=== PATIENT | female | born 1975 | race Caucasian/White ===

== ENCOUNTER 2018-02-26 20:25 | Emergency (ER) | payer OTHER ==
[~2018-02-26] VITALS: Ht 160 cm; Wt 63.5 kg
[~2018-02-26 20:25] MED LIST: ALPR1 PO; Ativan1 MG PO; Augmentin 875-1 EACH PO; CARV3.125 PO; CEFU500 PO; CLON.5 PO; CYCL10 PO; Coumadin5 MG PO; DULO30 PO; ESCI10; ESOM20 PO; FAMO20 PO; FLUO20 PO; FURO20 PO; GABA100; GABA300 PO; GUAI600T33 PO; HYDACE5 PO; HYDHCL25 PO; HYDR1TAB94 PO; IBUP400 PO; IBUP800 PO; Inderal 20 mg T20 MG PO; Klor-Con 1010 MEQ PO; LACT10SY PO; LEVFLO500 PO; LEVO750 PO; LISI20 PO; MAGOXI400 PO; META800 PO; METO50 PO; METOCLOPRAMIDE10 MG PO; METR500 PO; NAPR500 PO; NICO21TP TOP; Naprosyn500 MG PO; Norco 5-325 Ta1 EACH PO; Nortriptyline H25 MG PO; OMEP20ER PO; ONDA8 PO; OXYACE5T PO; PANT40 PO; PIND5; POTA20PAC PO; POTCHL20ER PO; PROC10 PO; PROM25 PO; Percocet 5-3251 EACH PO; RIFA550T2 PO; RXONDA4ODT MM; RXOXYACE PO; Rocephin 1g1 G/50 ML IV; Roxicodone15 MG PO; SERT25 PO; SILD25T PO; SOMA350 MG PO; Ultram50 MG PO; VANC125 IV; VITRON C PO; XARELTO15 MG PO; Zofran Odt4 MG PO; Zofran Odt4 MG SL; Zofran Odt8 MG SL
[2018-02-26 21:18] LABS: BASOPHILS ABSOLUTE AUTO 0.12 K/mm3 (0.00-0.23); BASOPHILS PERCENT AUTO 1 % (0-2); EOSINOPHILS ABSOLUTE AUTO 0.25 K/mm3 (0.00-0.68); EOSINOPHILS PERCENT AUTO 3 % (0-6); Hematocrit 41.7 % (33.0-51.0); Hemoglobin 13.2 g/dL (11.5-16.0); IMMATURE GRAN ABSOLUTE AUTO 0.04 K/mm3 (0.00-0.10); IMMATURE GRAN PERCENT AUTO 0 % (0-1); LYMPHOCYTES ABSOLUTE AUTO 3.07 K/mm3 (0.84-5.20); LYMPHOCYTES PERCENT AUTO 32 % (21-46); MONOCYTES ABSOLUTE AUTO 0.62 K/mm3 (0.16-1.47); MONOCYTES PERCENT AUTO 7 % (4-13); Mean Corpuscular HGB Conc 31.7 g/dL (31.5-36.5); Mean Corpuscular Volume 92 fL (80-100); Mean Platelet Volume 9.8 fL (9.1-12.4); NEUTROPHILS ABSOLUTE AUTO 5.49 K/mm3 (1.96-9.15); NEUTROPHILS PERCENT AUTO 57 % (41-73); Platelet Count 218 K/mm3 (150-400); RDW Coefficient Variation 13.1 % (11.7-14.2); RDW Standard Deviation 44.1 fL (35.1-46.3); Red Blood Cell Count 4.55 M/mm3 (3.80-5.20); White Blood Cell Count 9.59 K/mm3 (4.00-11.30)
[2018-02-26 21:33] LABS: Source, Urine Clean Catch
[2018-02-26 21:39] LABS: Bilirubin, Urine Neg (Neg); Blood, Urine Neg (Neg); Glucose Qualitative, Urine Neg (Neg); Ketones, Urine Neg (Neg); Leukocyte Esterase, Urine Neg (Neg); Nitrite, Urine Neg (Neg); Protein, Urine Neg (Neg); Specific Gravity, Urine 1.015 (1.003-1.022); Urobilinogen, Urine NORM (Normal)
[2018-02-26 21:47] LABS: Color, Urine Yellow (P-Yellow)
[2018-02-26 21:48] LABS: Appearance, Urine Hazy (Clear); Bacteria Few /hpf; Red Blood Cells, Urine Not Seen /hpf (0-2); Squamous Epithelial Cells Many /hpf (Few); White Blood Cells, Urine Rare /hpf (0-5)
[2018-02-26 21:49] LABS: Alanine Aminotransfer (ALT/SGP 17 U/L (12-78); Albumin, Blood 3.9 g/dL (3.4-5.0); Albumin/Globulin Ratio 1.1 (0.8-1.8); Alk Phos 102 U/L (50-136); Anion Gap 9 mmol/L (6-16); Aspartate Aminotrans (AST/SGOT 27 U/L (12-37); Bilirubin, Total 0.4 mg/dL (0.1-1.0); Blood Urea Nitrogen 6 mg/dL (8-24); Bun/Creatinine Ratio 8.4 (12.0-20.0); CO2, Blood 21 mmol/L (21-32); Chloride, Blood 102 mmol/L (98-108); Creatinine, Blood 0.71 mg/dL (0.40-1.00); Globulin, Blood 3.6 g/dL (2.2-4.0); Glomerular Filtration Rate >60 (60-); Glucose, Blood 107 mg/dL (70-99); Potassium, Blood 4.4 mmol/L (3.5-5.5); Sodium, Blood 132 mmol/L (136-145); Total Protein, Blood 7.5 g/dL (6.4-8.2)
[2018-02-26] MEDS ORDERED: Norco 5-325 Ta1 EACH PO (23:54)
[2018-02-26] MEDS ORDERED: Protonix40 MG PO (23:54)
== END 2018-02-27 00:14 | disposition home or self-care (01) ==
LOC: ER 20:25
PROVIDERS: Emergency Medicine
DX: K74.60 Unspecified cirrhosis of liver (principal); I11.0 Hypertensive heart disease with heart failure; I50.9 Heart failure, unspecified; F17.210 Nicotine dependence, cigarettes, uncomplicated; Z88.1 Allergy status to other antibiotic agents; Z88.8 Allergy status to other drugs, medicaments and biological substances; Z79.899 Other long term (current) drug therapy
CPT/HCPCS: 36415; 71046; 80053; 81001; 81025; 83690; 84484; 85025; 93005; 93010; 96374; 96376; 99284-25; J3010

== ENCOUNTER 2018-03-06 22:18 | Emergency (ER) | payer OTHER ==
[~2018-03-06] VITALS: Ht 160 cm; Wt 63.5 kg
[~2018-03-06 22:18] MED LIST changes: +Protonix40 MG PO
[2018-03-07] MEDS ORDERED: Norco 5-325 Ta1 EACH PO (00:09)
== END 2018-03-07 00:34 | disposition home or self-care (01) ==
LOC: ER 22:18
DX: R07.89 Other chest pain (principal); Z88.1 Allergy status to other antibiotic agents; Z88.8 Allergy status to other drugs, medicaments and biological substances; Z79.899 Other long term (current) drug therapy; I10 Essential (primary) hypertension; F17.210 Nicotine dependence, cigarettes, uncomplicated
CPT/HCPCS: 36415; 93005; 93010; 96374; 99283-25; J3010

== ENCOUNTER 2018-04-08 18:29 | Emergency (ER) | payer OTHER ==
[~2018-04-08] VITALS: Ht 160 cm; Wt 63.5 kg
[2018-04-08] MEDS ORDERED: Norco 5-325 Ta1 EACH PO (20:33)
== END 2018-04-08 20:47 | disposition home or self-care (01) ==
LOC: ER 18:29
DX: M54.5 Low back pain (principal); W01.198A Fall on same level from slipping, tripping and stumbling with subsequent striking against other object, initial encounter; Z88.1 Allergy status to other antibiotic agents; Z88.8 Allergy status to other drugs, medicaments and biological substances; Z79.899 Other long term (current) drug therapy; I11.0 Hypertensive heart disease with heart failure; I50.9 Heart failure, unspecified; F17.200 Nicotine dependence, unspecified, uncomplicated
CPT/HCPCS: 72100; 96372; 99283-25; J1885

== ENCOUNTER → 2019-02-26 | Outpatient (CLI) | payer OTHER ==
[2019-02-26 19:29] LABS: Bilirubin, Urine Neg (Neg); Blood, Urine Neg (Neg); Glucose Qualitative, Urine Neg (Neg); Ketones, Urine Neg (Neg); Leukocyte Esterase, Urine Neg (Neg); Nitrite, Urine Neg (Neg); Protein, Urine Neg (Neg); Specific Gravity, Urine 1.005 (1.003-1.022); Urobilinogen, Urine NORM (Normal)
[2019-02-26 19:34] LABS: Appearance, Urine Clear (Clear); Color, Urine Yellow (P-Yellow)
== END | disposition home or self-care (01) ==
LOC: LAB 16:19 → LAB SHORT 16:19 → LAB FUT 02-27 17:00 → EDSTATUS 02-27 17:00
DX: R10.9 Unspecified abdominal pain (principal)
CPT/HCPCS: 81003

== ENCOUNTER 2019-08-14 15:39 | Observation (INO) | payer OTHER ==
[~2019-08-14] VITALS: Ht 160 cm; Wt 77.9 kg
[~2019-08-14 15:39] MED LIST changes: -CARV3.125 PO; -PANT40 PO; -SERT25 PO
[2019-08-14 16:49] LABS: BASOPHILS ABSOLUTE AUTO 0.03 K/mm3 (0.00-0.23); BASOPHILS PERCENT AUTO 0 % (0-2); EOSINOPHILS ABSOLUTE AUTO 0.01 K/mm3 (0.00-0.68); EOSINOPHILS PERCENT AUTO 0 % (0-6); Hematocrit 46.7 % (33.0-51.0); Hemoglobin 15.8 g/dL (11.5-16.0); IMMATURE GRAN ABSOLUTE AUTO 0.04 K/mm3 (0.00-0.10); IMMATURE GRAN PERCENT AUTO 0 % (0-1); LYMPHOCYTES ABSOLUTE AUTO 2.03 K/mm3 (0.84-5.20); LYMPHOCYTES PERCENT AUTO 16 % (21-46); MONOCYTES ABSOLUTE AUTO 0.59 K/mm3 (0.16-1.47); MONOCYTES PERCENT AUTO 5 % (4-13); Mean Corpuscular HGB 30.6 pg (26.0-34.0); Mean Corpuscular HGB Conc 33.8 g/dL (31.5-36.5); Mean Corpuscular Volume 91 fL (80-100); Mean Platelet Volume 10.7 fL (9.1-12.4); NEUTROPHILS ABSOLUTE AUTO 10.13 K/mm3 (1.96-9.15); NEUTROPHILS PERCENT AUTO 79 % (41-73); Platelet Count 167 K/mm3 (150-400); RDW Coefficient Variation 12.6 % (11.7-14.2); RDW Standard Deviation 41.7 fL (35.1-46.3); Red Blood Cell Count 5.16 M/mm3 (3.80-5.20); White Blood Cell Count 12.83 K/mm3 (4.00-11.30)
[2019-08-14 17:03] LABS: Alanine Aminotransfer (ALT/SGP 23 U/L (12-78); Albumin, Blood 4.7 g/dL (3.4-5.0); Albumin/Globulin Ratio 1.1 (0.8-1.8); Alk Phos 106 U/L (50-136); Anion Gap 9 mmol/L (6-16); Aspartate Aminotrans (AST/SGOT 30 U/L (12-37); Bilirubin, Total 0.9 mg/dL (0.1-1.0); Blood Urea Nitrogen 9 mg/dL (8-24); Bun/Creatinine Ratio 12.6 (12.0-20.0); CO2, Blood 26 mmol/L (21-32); Chloride, Blood 104 mmol/L (98-108); Creatinine, Blood 0.71 mg/dL (0.40-1.00); Globulin, Blood 4.3 g/dL (2.2-4.0); Glomerular Filtration Rate >60 (60-); Glucose, Blood 122 mg/dL (70-99); Potassium, Blood 3.8 mmol/L (3.5-5.5); Sodium, Blood 139 mmol/L (136-145)
[2019-08-14 17:46] LABS: Source, Urine Clean Catch
[2019-08-14 17:59] LABS: Bilirubin, Urine Neg (Neg); Blood, Urine 1+ (Neg); Glucose Qualitative, Urine Neg (Neg); Ketones, Urine 3+ (Neg); Leukocyte Esterase, Urine Neg (Neg); Nitrite, Urine Neg (Neg); Protein, Urine 1+ (Neg); Specific Gravity, Urine 1.015 (1.003-1.022); Urobilinogen, Urine NORM (Normal)
[2019-08-14 18:06] LABS: Appearance, Urine Clear (Clear); Color, Urine Yellow (P-Yellow)
[2019-08-14 18:15] LABS: Bacteria Few /hpf; Mucus Light (0-Heavy); Red Blood Cells, Urine Not Seen /hpf (0-2); Squamous Epithelial Cells Few /hpf (Few); White Blood Cells, Urine 0-2 /hpf (0-5)
[2019-08-14] MEDS ORDERED: CARV6.25 PO (18:32)
[2019-08-14] MEDS ORDERED: PANT40 PO (18:33)
[2019-08-14] MEDS ORDERED: SERT50 PO (18:33)
[2019-08-14] MEDS ORDERED: LACT10SY PO (18:34)
[2019-08-14] MEDS ORDERED: CYCL10 PO (18:35)
[2019-08-14] MEDS ORDERED: GABAPENTIN600 MG PO (18:35)
[2019-08-14] MEDS ORDERED: CLON.5 PO (18:36)
[2019-08-14] MEDS ORDERED: OXYCODONE-ACET1 EAC3 PO (18:37)
--- NOTE | 2019-08-15 00:39 | NUR ---
44 YR OLD FEMALE ADMITTED TO FLOOR EARLIER FROM THE ED WITH DX OF INTRACTIBLE N/V. PT VOICED S/S X 1 WEEK PRIOR TO COMING INTO THE ED. ALERT AND ORIENTED X 4. HX CARDIAC ISSUES - SEE HX. NITRO PASTE ADMIN IN THE ED. 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 NOTE TROP LEVELS TRENDING SLIGHTLY UPWARD. PLACED ON MED TELE. DILAUDID IV ADMINISTERED. ORDERS FOR CLONIPIN 0.5MG PO OBTAINED FROM MD PT VOICED TAKES MED EVERY NIGHT FOR ANXIETY. ORIENTED TO CALL LIGHT. CALL LIGHT IN REACH. IVF OF LR INFUSING PER MAR. WILL MONITOR.
[2019-08-15 04:55] LABS: BASOPHILS ABSOLUTE AUTO 0.04 K/mm3 (0.00-0.23); BASOPHILS PERCENT AUTO 0 % (0-2); EOSINOPHILS PERCENT AUTO 1 % (0-6); Hematocrit 35.4 % (33.0-51.0); Hemoglobin 11.6 g/dL (11.5-16.0); IMMATURE GRAN ABSOLUTE AUTO 0.02 K/mm3 (0.00-0.10); IMMATURE GRAN PERCENT AUTO 0 % (0-1); LYMPHOCYTES ABSOLUTE AUTO 3.08 K/mm3 (0.84-5.20); LYMPHOCYTES PERCENT AUTO 31 % (21-46); MONOCYTES ABSOLUTE AUTO 0.74 K/mm3 (0.16-1.47); MONOCYTES PERCENT AUTO 8 % (4-13); Mean Corpuscular HGB 30.4 pg (26.0-34.0); Mean Corpuscular HGB Conc 32.8 g/dL (31.5-36.5); Mean Corpuscular Volume 93 fL (80-100); Mean Platelet Volume 10.9 fL (9.1-12.4); NEUTROPHILS ABSOLUTE AUTO 5.88 K/mm3 (1.96-9.15); NEUTROPHILS PERCENT AUTO 60 % (41-73); Platelet Count 123 K/mm3 (150-400); RDW Coefficient Variation 12.8 % (11.7-14.2); RDW Standard Deviation 44.1 fL (35.1-46.3); Red Blood Cell Count 3.81 M/mm3 (3.80-5.20); White Blood Cell Count 9.86 K/mm3 (4.00-11.30)
[2019-08-15 05:13] LABS: Anion Gap 5 mmol/L (6-16); Blood Urea Nitrogen 9 mg/dL (8-24); Bun/Creatinine Ratio 13.5 (12.0-20.0); CO2, Blood 28 mmol/L (21-32); Calcium, Blood 8.1 mg/dL (8.5-10.1); Chloride, Blood 106 mmol/L (98-108); Creatinine, Blood 0.67 mg/dL (0.40-1.00); Glomerular Filtration Rate >60 (60-); Glucose, Blood 89 mg/dL (70-99); Magnesium, Blood 1.6 mg/dL (1.6-2.4); Potassium, Blood 3.1 mmol/L (3.5-5.5); Sodium, Blood 139 mmol/L (136-145)
--- NOTE | 2019-08-15 18:21 | NUR ---
SHIFT SUMMARY- PT IS A/O, PLESANT AND COOPERATIVE. SHE HAS NOT HAD A BM THIS SHIFT. PROVIDED TWO FLEET ENEMA PER DRS ORDERS. PT IS REQUIRING PAIN MEDICATION FREQUENTLY. DISCUSSED WITH THE PT ABOUT THE CONSTIPATING EFFECTS OF NARCOTIC PAIN MEDICATION. DR. GALLOWAY CONSULTED AND PT WILL RECIEVE AN EGD TOMORROW AFTERNOON. SHE IS RECEIVING A CLEAR LIQUID DIET.
--- NOTE | 2019-08-15 21:56 | NUR ---
PT CONTINUES TO C/O PAIN IN ABD AND PEREZ. ANALGESICS ADMIN PER MD ORDERS - SEE MAR FOR DETAILS. DISCUSSED DILAUDID SIDE EFFECTS POSSIBLE SLOWING BOWEL FUNCTION, VOICED UNDERSTANDING. STOOL MEDS GIVEN, ORDERS NOTED FOR DIET CHANGE TO WATER AND ICE CHIPS SHE PREPARES FOR PROCEDURE SCHEDULED TOMORROW, IVF OF LR CONTINUES TO INFUSE. CALL LIGHT IN REACH.
--- NOTE | 2019-08-16 04:22 | NUR ---
shift summary AWAKE AT INTERVALS WITH REQUESTS FOR PAIN MEDS. IVF INFUSING PER MD ORDERS - SEE MAR FOR DETAILS. DIET ONLY WATER AND ICE CHIPS IN PREPARATION FOR PROCEDURE SCHEDULED LATER TODAY. VOIDING QS, BUT STILL VOICED HAVING DIFFICULTY HAVING BM, MEDS GIVEN FOR BM, SEE MAR FOR DETAILS. CALL LIGHT IN REACH.
[2019-08-16 05:39] LABS: Hemoglobin 11.2 g/dL (11.5-16.0); Mean Corpuscular HGB 29.9 pg (26.0-34.0); Mean Corpuscular Volume 93 fL (80-100); Mean Platelet Volume 10.9 fL (9.1-12.4); Platelet Count 113 K/mm3 (150-400); RDW Coefficient Variation 12.4 % (11.7-14.2); RDW Standard Deviation 42.5 fL (35.1-46.3); Red Blood Cell Count 3.75 M/mm3 (3.80-5.20); White Blood Cell Count 5.99 K/mm3 (4.00-11.30)
[2019-08-16 06:06] LABS: Anion Gap 8 mmol/L (6-16); Blood Urea Nitrogen 7 mg/dL (8-24); Bun/Creatinine Ratio 10.6 (12.0-20.0); CO2, Blood 24 mmol/L (21-32); Calcium, Blood 7.9 mg/dL (8.5-10.1); Chloride, Blood 108 mmol/L (98-108); Creatinine, Blood 0.66 mg/dL (0.40-1.00); Glomerular Filtration Rate >60 (60-); Glucose, Blood 81 mg/dL (70-99); Potassium, Blood 3.5 mmol/L (3.5-5.5); Sodium, Blood 140 mmol/L (136-145)
--- NOTE | 2019-08-16 16:29 | NUR ---
PT TRANSFERRED TO [facility] VIA BED FROM MED FLOOR. Lungs clear T/O to Auscultation. History, Chart, Medications and Allergies reviewed before start of procedure. Patient confirms NPO status and agrees with scheduled surgery. Pre-Op teaching done. Pt verbalizes understanding.
--- NOTE | 2019-08-16 16:49 | NUR ---
08/16/19 1649 CORNELIA MIRZA 3-LEAD EKG REVIEWED WITH PHYSICIAN PRIOR TO START OF PROCEDURE. History, Chart, Medications and Allergies reviewed before start of procedure. O2 VIA N/C INTACT THROUGHOUT SEDATION/PROCEDURE. MONITOR INTACT WITH CONTINUOUS PULSE OXIMETRY AND INTERMITTENT BP. PATIENT DETERMINED TO BE ASA APPROPRIATE FOR PROPOFOL SEDATION PRIOR TO START OF PROCEDURE BY DR. SORENSON
--- NOTE | 2019-08-16 18:43 | NUR ---
ALERT. ORIENTED. HAD EGD. HAD LIQUID B.M AND FEELING LITTLE BETTER IN THAT END. IV INFUSING. MEDICATED FOR PAIN ABOUT Q 2 HOURS. INDEPENDENT IN THE ROOM.REPORT TO NIGHT RN
--- NOTE | 2019-08-17 07:33 | NUR ---
SHIFT SUMMARY A/O, ABLE TO MAKE NEEDS KNOWN. COOPERATIVE WITH CARE. CALLS AND ANSWERS QUESTIONS APPROPRIATELY. C/O PAIN/DISCOMFORT TO ABDOMEN RATED 7/10; MEDICATED PER EMAR. VSS/AFEBRILE. NO C/O CP OR N/V. UP INDEPENDENTLY IN ROOM. NEW 22G IV PLACE TO LFA, INFUSING LR WITHOUT ANY COMPLICATIONS. NO ACUTE CHANGES NOTED OVERNIGHT. DID NOT APPEAR TO REST. BED REMAINS IN LOWEST POSITION. CALL LIGHT AND BELONGINGS WITHIN REACH. CONTINUED TO MONITOR OVERNIGHT. REPORT GIVEN TO ONCOMING RN.
--- NOTE | 2019-08-17 07:39 | NUR ---
TASAndersonKED TO ABOUT GETTING P.O. PAIN MEDS. Sanna'Ana SKAGGS. TRAMADOL 50-100 MG Q 6 HOURS PRN
[2019-08-17] MEDS ORDERED: MELATONIN5 M1 PO (09:19)
[2019-08-17] MEDS ORDERED: TRAM50 PO (09:20)
[2019-08-17] MEDS ORDERED: ONDA4ODT MM (09:20)
--- NOTE | 2019-08-17 10:58 | NUR ---
REVIEW D'C. AWARE TO FREIGHT CONDUCTOR 2 MEDS AT [facility]. HAS HARD COPY TRAMADOL. AWARE OF F/U APPT. AWARE DR SORENSON'S OFFICE WILL CALL HER. FEELING MUCH BETTER. ANSWER ALL QUESTIONS. AWAITING RIDE.
== END 2019-08-17 11:39 | disposition home or self-care (01) ==
LOC: ER 15:39 → MEDS 15:40 → ER 20:59 → MEDS 21:13 → ENPENDDIS 08-17 09:00 → MEDS 08-17 11:39
PROVIDERS: Internal Medicine Gastroenterology; Physician Assistant; ADMIT Internal Medicine
PROC: 0DB68ZX Excision of Stomach, Via Natural or Artificial Opening Endoscopic, Diagnostic (ICD-10-PCS; principal; 2019-08-16 16:00)
DX: K25.9 Gastric ulcer, unspecified as acute or chronic, without hemorrhage or perforation (principal); T39.315A Adverse effect of propionic acid derivatives, initial encounter; E86.0 Dehydration; D63.8 Anemia in other chronic diseases classified elsewhere; I10 Essential (primary) hypertension; Z95.810 Presence of automatic (implantable) cardiac defibrillator; Z90.710 Acquired absence of both cervix and uterus; Z86.79 Personal history of other diseases of the circulatory system; Z87.19 Personal history of other diseases of the digestive system; Z86.711 Personal history of pulmonary embolism; Z79.01 Long term (current) use of anticoagulants; E87.6 Hypokalemia; Z79.891 Long term (current) use of opiate analgesic; I27.20 Pulmonary hypertension, unspecified; K56.41 Fecal impaction; R79.89 Other specified abnormal findings of blood chemistry; F17.290 Nicotine dependence, other tobacco product, uncomplicated
CPT/HCPCS: 36415; 71046; 74177; 80048; 80053; 81001; 83690; 83735; 84484; 85025; 85027; 87086; 87147; 88305; 88342; 93005; 93010; 96361; 96374-59; 96375; 96376; 99285-25; A9270-GY; C9113; G0378; J1170; J2405; J2704; J3480; J7120; Q9967; U0002

== ENCOUNTER 2019-11-19 19:20 | Observation (INO) | payer OTHER ==
[~2019-11-19] VITALS: Ht 160 cm; Wt 75.3 kg
[~2019-11-19 19:20] MED LIST changes: +CARV6.25 PO; +GABAPENTIN600 MG PO; +MELATONIN5 M1 PO; +ONDA4ODT MM; +OXYCODONE-ACET1 EAC3 PO; +PANT40 PO; +SERT50 PO; +TRAM50 PO
[2019-11-19 20:11] LABS: BASOPHILS ABSOLUTE AUTO 0.05 K/mm3 (0.00-0.23); BASOPHILS PERCENT AUTO 0 % (0-2); EOSINOPHILS ABSOLUTE AUTO 0.02 K/mm3 (0.00-0.68); EOSINOPHILS PERCENT AUTO 0 % (0-6); Hematocrit 52.8 % (33.0-51.0); Hemoglobin 17.2 g/dL (11.5-16.0); IMMATURE GRAN ABSOLUTE AUTO 0.03 K/mm3 (0.00-0.10); IMMATURE GRAN PERCENT AUTO 0 % (0-1); LYMPHOCYTES ABSOLUTE AUTO 2.63 K/mm3 (0.84-5.20); LYMPHOCYTES PERCENT AUTO 23 % (21-46); MONOCYTES ABSOLUTE AUTO 0.65 K/mm3 (0.16-1.47); MONOCYTES PERCENT AUTO 6 % (4-13); Mean Corpuscular HGB 28.8 pg (26.0-34.0); Mean Corpuscular HGB Conc 32.6 g/dL (31.5-36.5); Mean Corpuscular Volume 88 fL (80-100); Mean Platelet Volume 10.3 fL (9.1-12.4); NEUTROPHILS ABSOLUTE AUTO 7.94 K/mm3 (1.96-9.15); NEUTROPHILS PERCENT AUTO 70 % (41-73); Platelet Count 210 K/mm3 (150-400); RDW Coefficient Variation 13.1 % (11.7-14.2); RDW Standard Deviation 42.4 fL (35.1-46.3); Red Blood Cell Count 5.98 M/mm3 (3.80-5.20); White Blood Cell Count 11.32 K/mm3 (4.00-11.30)
[2019-11-19 20:38] LABS: Alanine Aminotransfer (ALT/SGP 19 U/L (12-78); Albumin, Blood 4.9 g/dL (3.4-5.0); Albumin/Globulin Ratio 1.2 (0.8-1.8); Alk Phos 157 U/L (50-136); Anion Gap 23 mmol/L (6-16); Aspartate Aminotrans (AST/SGOT 30 U/L (12-37); Bilirubin, Total 1.5 mg/dL (0.1-1.0); Blood Urea Nitrogen 15 mg/dL (8-24); Bun/Creatinine Ratio 16.8 (12.0-20.0); CO2, Blood 14 mmol/L (21-32); Calcium, Blood 9.9 mg/dL (8.5-10.1); Chloride, Blood 96 mmol/L (98-108); Creatinine, Blood 0.89 mg/dL (0.40-1.00); Globulin, Blood 4.2 g/dL (2.2-4.0); Glomerular Filtration Rate >60 (60-); Glucose, Blood 76 mg/dL (70-99); Potassium, Blood 4.2 mmol/L (3.5-5.5); Sodium, Blood 133 mmol/L (136-145); Total Protein, Blood 9.1 g/dL (6.4-8.2); Troponin I <0.015 ng/mL (0.000-0.040)
[2019-11-19 22:36] LABS: Beta-hydroxybutyrate 67.6 mg/dL (0.2-2.8)
--- NOTE | 2019-11-20 05:44 | NUR ---
SHIFT SUMMARY PT ARRIVIED TO UNIT FROM ED VIA STRETCHER AT 0150. TRANSFERED FROM STRETCHER TO HOSPITAL BED SBA, TURN AND PIVOT. SOON PT WAS IN BED STATED "WHEN DO I GET MY MEDS". PT HAS CONSTANT COMPLAINTS OF ABD PAIN AND NAUSEA. VOMITED GREEN BILE TWICE DURING SHIFT. BLOOD PRESSURE WAS HIGH UPON ARRIVIAL AND REMAINS HIGH EVEN WITH MEDS GIVEN PER MAR. PT IS SPECIFICALLY REQUESTING DILAUDID "FOR NAUSEA" STATING "IT'S THE ONLY THING THAT HELPS." HOSPITALIST CALLED AND WAS NOT WILLING TO ORDER. STATED PT WAS NOTIFIED OF SUCH IN THE ER. PT CALLS APPROPRIATELY. NO APPARENT DISTRESS OR NEEDS AT THIS TIME. WILL CONTINUE TO MONITOR UNTIL REPORT GIVEN TO DAY RN.
[2019-11-20 05:52] LABS: Anion Gap 19 mmol/L (6-16); Blood Urea Nitrogen 14 mg/dL (8-24); Bun/Creatinine Ratio 19.1 (12.0-20.0); CO2, Blood 15 mmol/L (21-32); Calcium, Blood 10.3 mg/dL (8.5-10.1); Chloride, Blood 99 mmol/L (98-108); Creatinine, Blood 0.73 mg/dL (0.40-1.00); Glomerular Filtration Rate >60 (60-); Glucose, Blood 81 mg/dL (70-99); Potassium, Blood 3.9 mmol/L (3.5-5.5); Sodium, Blood 133 mmol/L (136-145)
[2019-11-20 12:50] LABS: Anion Gap 14 mmol/L (6-16); Blood Urea Nitrogen 12 mg/dL (8-24); Bun/Creatinine Ratio 15.6 (12.0-20.0); CO2, Blood 18 mmol/L (21-32); Chloride, Blood 106 mmol/L (98-108); Creatinine, Blood 0.77 mg/dL (0.40-1.00); Glomerular Filtration Rate >60 (60-); Glucose, Blood 97 mg/dL (70-99); Potassium, Blood 3.9 mmol/L (3.5-5.5); Sodium, Blood 138 mmol/L (136-145)
[2019-11-20] MEDS ORDERED: PROM25 PO (14:12)
--- NOTE | 2019-11-20 17:35 | NUR ---
DISCHARGE NOTE PT DISCHARGE INSTRUCTIONS AND MEDICATIONS REVIEWED WITH PT. PT VERBALIZES AN UNDERSTANDING OF INSTRUCTIONS AND MEDICATIONS. IV ACCESS REMOVED PRIOR TO DISCHARGE. PT WHEELED DOWN TO ER ENTRANCE FOR TRANSPORT HOME WITH HER MOTHER.
== END 2019-11-20 16:58 | disposition home or self-care (01) ==
LOC: ER 19:20 → MEDS 19:21
PROVIDERS: Emergency Medicine; Family Medicine; ADMIT Internal Medicine
DX: R11.2 Nausea with vomiting, unspecified (principal); G89.29 Other chronic pain; K74.60 Unspecified cirrhosis of liver; E87.1 Hypo-osmolality and hyponatremia; E86.0 Dehydration; I27.20 Pulmonary hypertension, unspecified; K29.70 Gastritis, unspecified, without bleeding; E87.8 Other disorders of electrolyte and fluid balance, not elsewhere classified; I11.9 Hypertensive heart disease without heart failure; F17.210 Nicotine dependence, cigarettes, uncomplicated; Z88.1 Allergy status to other antibiotic agents; Z79.899 Other long term (current) drug therapy
CPT/HCPCS: 36415; 71046; 80048; 80053; 82010; 83605; 83880; 84484; 85025; 93005; 93010; 96361; 96374; 96375; 96376; 99285-25; J0360; J1170; J1200; J1650; J2060; J2405; J2550; J2765; J7030; J7040; J7120

== ENCOUNTER 2019-11-21 08:18 | Inpatient (IN) | payer OTHER ==
[~2019-11-21] VITALS: Ht 160 cm; Wt 72.6 kg
[2019-11-21 10:14] LABS: BASOPHILS ABSOLUTE AUTO 0.03 K/mm3 (0.00-0.23); BASOPHILS PERCENT AUTO 0 % (0-2); EOSINOPHILS PERCENT AUTO 0 % (0-6); Hematocrit 42.1 % (33.0-51.0); Hemoglobin 14.5 g/dL (11.5-16.0); IMMATURE GRAN ABSOLUTE AUTO 0.03 K/mm3 (0.00-0.10); IMMATURE GRAN PERCENT AUTO 0 % (0-1); LYMPHOCYTES ABSOLUTE AUTO 1.34 K/mm3 (0.84-5.20); LYMPHOCYTES PERCENT AUTO 11 % (21-46); MONOCYTES ABSOLUTE AUTO 0.34 K/mm3 (0.16-1.47); MONOCYTES PERCENT AUTO 3 % (4-13); Mean Corpuscular HGB 29.2 pg (26.0-34.0); Mean Corpuscular HGB Conc 34.4 g/dL (31.5-36.5); Mean Corpuscular Volume 85 fL (80-100); Mean Platelet Volume 10.1 fL (9.1-12.4); NEUTROPHILS PERCENT AUTO 85 % (41-73); Platelet Count 164 K/mm3 (150-400); RDW Coefficient Variation 13.6 % (11.7-14.2); RDW Standard Deviation 41.5 fL (35.1-46.3); Red Blood Cell Count 4.97 M/mm3 (3.80-5.20); White Blood Cell Count 11.84 K/mm3 (4.00-11.30)
[2019-11-21 10:30] LABS: Alanine Aminotransfer (ALT/SGP 20 U/L (12-78); Albumin/Globulin Ratio 1.3 (0.8-1.8); Alk Phos 115 U/L (50-136); Anion Gap 14 mmol/L (6-16); Aspartate Aminotrans (AST/SGOT 33 U/L (12-37); Bilirubin, Total 0.9 mg/dL (0.1-1.0); Blood Urea Nitrogen 7 mg/dL (8-24); Bun/Creatinine Ratio 11.6 (12.0-20.0); CO2, Blood 21 mmol/L (21-32); Calcium, Blood 10.4 mg/dL (8.5-10.1); Chloride, Blood 100 mmol/L (98-108); Globulin, Blood 3.8 g/dL (2.2-4.0); Glomerular Filtration Rate >60 (60-); Glucose, Blood 112 mg/dL (70-99); Potassium, Blood 3.6 mmol/L (3.5-5.5); Sodium, Blood 135 mmol/L (136-145); Total Protein, Blood 8.8 g/dL (6.4-8.2)
[2019-11-21 15:45] LABS: U Amphetamine Screen Not Detected; U Barbituate Screen Not Detected; U Benzodiazapine Screen DETECTED; U Buprenorphine Screen Not Detected; U Cannabinoids Screen Not Detected; U Cocaine Screen Not Detected; U Methadone Screen Not Detected; U Methamphetamine Screen Not Detected; U Opiates Screen DETECTED; U Oxycodone Screen DETECTED; U Phencyclidine Screen Not Detected; U Propoxyphene Screen Not Detected
--- NOTE | 2019-11-21 18:04 | NUR ---
SHIFT SUMMARY ED ADMIT AFTER LUNCH. PATIENT MEDICATED X2 FOR PAIN AND X2 FOR NAUSEA THIS SHIFT. PATIENT UP SBA FOR LINE MANAGEMENT. PATIENT HAD CT OF ABDOMEN TODAY. PATIENT HYPERTENSIVE TODAY, NEW ORDERS FOR IV HYDRALAZINE GIVEN. CLEAR LIQUID DIET. POWERGLIDE PLACED TODAY.
[2019-11-22 04:54] LABS: BASOPHILS ABSOLUTE AUTO 0.04 K/mm3 (0.00-0.23); BASOPHILS PERCENT AUTO 0 % (0-2); EOSINOPHILS PERCENT AUTO 0 % (0-6); Hematocrit 39.6 % (33.0-51.0); Hemoglobin 13.4 g/dL (11.5-16.0); IMMATURE GRAN ABSOLUTE AUTO 0.02 K/mm3 (0.00-0.10); IMMATURE GRAN PERCENT AUTO 0 % (0-1); LYMPHOCYTES ABSOLUTE AUTO 2.29 K/mm3 (0.84-5.20); LYMPHOCYTES PERCENT AUTO 25 % (21-46); MONOCYTES ABSOLUTE AUTO 0.63 K/mm3 (0.16-1.47); MONOCYTES PERCENT AUTO 7 % (4-13); Mean Corpuscular HGB 28.7 pg (26.0-34.0); Mean Corpuscular HGB Conc 33.8 g/dL (31.5-36.5); Mean Corpuscular Volume 85 fL (80-100); Mean Platelet Volume 10.8 fL (9.1-12.4); NEUTROPHILS ABSOLUTE AUTO 6.07 K/mm3 (1.96-9.15); NEUTROPHILS PERCENT AUTO 67 % (41-73); Platelet Count 147 K/mm3 (150-400); RDW Coefficient Variation 13.5 % (11.7-14.2); RDW Standard Deviation 41.7 fL (35.1-46.3); Red Blood Cell Count 4.67 M/mm3 (3.80-5.20); White Blood Cell Count 9.05 K/mm3 (4.00-11.30)
--- NOTE | 2019-11-22 05:13 | NUR ---
SHIFT SUMMARY- PT. PAINFUL AND NAUSEOUS T/O THE NIGHT. MEDICATED PER EMAR WITH MINIMAL EFFECT. RESTED QUIETLY IN BED MOST OF THE NIGHT. NO APPARENT DISTRESS NOTED. AMBULATES TO BATHROOM W/O DIFFICULTY. POWERGLIDE PATENT, IV FLUIDS INFUSING. CALL LIGHT WITHIN REACH AND SIDE RAILS UPX2. WILL CONT TO MONITOR.
[2019-11-22 05:21] LABS: Alanine Aminotransfer (ALT/SGP 15 U/L (12-78); Albumin/Globulin Ratio 1.1 (0.8-1.8); Alk Phos 92 U/L (50-136); Anion Gap 12 mmol/L (6-16); Aspartate Aminotrans (AST/SGOT 44 U/L (12-37); Bilirubin, Total 0.8 mg/dL (0.1-1.0); Blood Urea Nitrogen 5 mg/dL (8-24); Bun/Creatinine Ratio 7.7 (12.0-20.0); CO2, Blood 26 mmol/L (21-32); Calcium, Blood 8.6 mg/dL (8.5-10.1); Chloride, Blood 99 mmol/L (98-108); Creatinine, Blood 0.65 mg/dL (0.40-1.00); Globulin, Blood 3.5 g/dL (2.2-4.0); Glomerular Filtration Rate >60 (60-); Glucose, Blood 89 mg/dL (70-99); Magnesium, Blood 1.5 mg/dL (1.6-2.4); Sodium, Blood 137 mmol/L (136-145); Thyroid Stimulating Hormone 0.749 uIU/mL (0.360-4.800); Total Protein, Blood 7.5 g/dL (6.4-8.2)
--- NOTE | 2019-11-22 17:47 | NUR ---
SUMMARY: NO ACUTE CHANGE TODAY. PT CONTINUES TO HAVE INTERMITTANT NAUSEA, NO EMESIS, ALSO INTERMITTANT ABD PAIN. MEDICATED, SEE EMAR. IS INDEP IN ROOM. A/O. GIVEN COREG FOR HTN. NO ACUTE SAFETY CONCERNS AT THIS TIME. WILL CTM AND REPORT TO NOC RN.
--- NOTE | 2019-11-22 23:01 | NUR ---
PHYSICIAN COMMUNICATION CONTACTED THE CORE MOUNTER PHYSICIAN, DR QUINTERO, TO NOTIFY HIM THAT THE PATIENT WAS ASKING FOR SOMETHING TO HELP WITH BREAKTHROUGH PAIN. THIS RN INFORMED THE PHYSICIAN THAT THE PATIENT WAS CURRENTLY ON 2.5 MG OF MORPHINE Q4 PRN FOR PAIN AND HAS PROLONGED QT SYNDROME. DR QUINTERO ORDERED FENTANYL 25-50 MCG IV Q6 HOURS PRN.
[2019-11-23 04:54] LABS: BASOPHILS ABSOLUTE AUTO 0.03 K/mm3 (0.00-0.23); BASOPHILS PERCENT AUTO 0 % (0-2); EOSINOPHILS ABSOLUTE AUTO 0.01 K/mm3 (0.00-0.68); EOSINOPHILS PERCENT AUTO 0 % (0-6); Hematocrit 41.7 % (33.0-51.0); Hemoglobin 14.3 g/dL (11.5-16.0); IMMATURE GRAN ABSOLUTE AUTO 0.03 K/mm3 (0.00-0.10); IMMATURE GRAN PERCENT AUTO 0 % (0-1); LYMPHOCYTES ABSOLUTE AUTO 2.23 K/mm3 (0.84-5.20); LYMPHOCYTES PERCENT AUTO 28 % (21-46); MONOCYTES ABSOLUTE AUTO 0.66 K/mm3 (0.16-1.47); MONOCYTES PERCENT AUTO 8 % (4-13); Mean Corpuscular HGB 28.6 pg (26.0-34.0); Mean Corpuscular HGB Conc 34.3 g/dL (31.5-36.5); Mean Corpuscular Volume 83 fL (80-100); Mean Platelet Volume 10.3 fL (9.1-12.4); NEUTROPHILS ABSOLUTE AUTO 4.93 K/mm3 (1.96-9.15); NEUTROPHILS PERCENT AUTO 62 % (41-73); Platelet Count 162 K/mm3 (150-400); RDW Coefficient Variation 13.3 % (11.7-14.2); RDW Standard Deviation 40.8 fL (35.1-46.3); White Blood Cell Count 7.89 K/mm3 (4.00-11.30)
[2019-11-23 05:18] LABS: Magnesium, Blood 1.4 mg/dL (1.6-2.4)
[2019-11-23 05:37] LABS: Alanine Aminotransfer (ALT/SGP 12 U/L (12-78); Albumin/Globulin Ratio 1.3 (0.8-1.8); Alk Phos 91 U/L (50-136); Anion Gap 10 mmol/L (6-16); Aspartate Aminotrans (AST/SGOT 22 U/L (12-37); Bilirubin, Total 0.7 mg/dL (0.1-1.0); Blood Urea Nitrogen 8 mg/dL (8-24); Bun/Creatinine Ratio 11.9 (12.0-20.0); CO2, Blood 27 mmol/L (21-32); Calcium, Blood 8.6 mg/dL (8.5-10.1); Chloride, Blood 100 mmol/L (98-108); Creatinine, Blood 0.67 mg/dL (0.40-1.00); Globulin, Blood 3.1 g/dL (2.2-4.0); Glomerular Filtration Rate >60 (60-); Glucose, Blood 88 mg/dL (70-99); Potassium, Blood 2.3 mmol/L (3.5-5.5); Sodium, Blood 137 mmol/L (136-145); Total Protein, Blood 7.1 g/dL (6.4-8.2)
--- NOTE | 2019-11-23 07:50 | NUR ---
SHIFT SUMMARY PATIENT ALERT AND ORIENTED. PATIENT REMAINS VERY PAINFUL AND NAUSEATED, MEDICATED PER EMAR. IV PATENT AND FLUSHED. POWERGLIDE PATENT AND INFUSING. BED IN LOWEST POSITION WITH WHEELS LOCKED AND ALARM ON. CALL LIGHT WITHIN REACH. REPORT GIVEN TO ONCOMING RN.
--- NOTE | 2019-11-23 17:36 | NUR ---
PT AOX4 AND COOPERATIVE OF CARE. PT HAS HAD CONTINUED ABDOMINAL PAIN AND NAUSEA AND HAS BEEN TREATED PER EMAR. PT STATED SHE THOUGHT HER NAUSEA HAD IMPROVED A BIT THROUGH THE DAY. PT CALLS APPROPRIATELY AND ASKS FOR HELP WHEN SHE NEEDS TO WALK IN AND USE RESTROOM DUE TO THE IV POLE NEEDING MOVED. CALL LIGHT IS WITHIN REACH WILL CONTINUE TO MONITOR.
--- NOTE | 2019-11-24 04:13 | NUR ---
SUMMARY PT HAS BEEN TX FOR PAIN AND NAUSEA T/O SHIFT. PT HAS BEEN ABLE TO SLEEP DURING SHIFT. PT HAD NO OTHER ISSUES NOTED. PT CURRENTLY SLEEPING IN NO DISTRESS. CALL LIGHT IN REACH.
[2019-11-24 06:38] LABS: BASOPHILS ABSOLUTE AUTO 0.04 K/mm3 (0.00-0.23); BASOPHILS PERCENT AUTO 1 % (0-2); EOSINOPHILS ABSOLUTE AUTO 0.08 K/mm3 (0.00-0.68); EOSINOPHILS PERCENT AUTO 1 % (0-6); Hematocrit 37.2 % (33.0-51.0); Hemoglobin 12.9 g/dL (11.5-16.0); IMMATURE GRAN ABSOLUTE AUTO 0.02 K/mm3 (0.00-0.10); IMMATURE GRAN PERCENT AUTO 0 % (0-1); LYMPHOCYTES ABSOLUTE AUTO 2.32 K/mm3 (0.84-5.20); LYMPHOCYTES PERCENT AUTO 39 % (21-46); MONOCYTES ABSOLUTE AUTO 0.46 K/mm3 (0.16-1.47); MONOCYTES PERCENT AUTO 8 % (4-13); Mean Corpuscular HGB 29.3 pg (26.0-34.0); Mean Corpuscular HGB Conc 34.7 g/dL (31.5-36.5); Mean Corpuscular Volume 85 fL (80-100); Mean Platelet Volume 10.5 fL (9.1-12.4); NEUTROPHILS ABSOLUTE AUTO 3.08 K/mm3 (1.96-9.15); NEUTROPHILS PERCENT AUTO 51 % (41-73); Platelet Count 129 K/mm3 (150-400); RDW Coefficient Variation 13.9 % (11.7-14.2)
[2019-11-24 06:56] LABS: Alanine Aminotransfer (ALT/SGP 17 U/L (12-78); Albumin, Blood 3.3 g/dL (3.4-5.0); Albumin/Globulin Ratio 1.1 (0.8-1.8); Alk Phos 80 U/L (50-136); Anion Gap 4 mmol/L (6-16); Aspartate Aminotrans (AST/SGOT 21 U/L (12-37); Bilirubin, Total 0.6 mg/dL (0.1-1.0); Blood Urea Nitrogen 5 mg/dL (8-24); Bun/Creatinine Ratio 8.1 (12.0-20.0); CO2, Blood 27 mmol/L (21-32); Calcium, Blood 8.4 mg/dL (8.5-10.1); Chloride, Blood 109 mmol/L (98-108); Creatinine, Blood 0.62 mg/dL (0.40-1.00); Glomerular Filtration Rate >60 (60-); Glucose, Blood 104 mg/dL (70-99); Potassium, Blood 3.7 mmol/L (3.5-5.5); Sodium, Blood 140 mmol/L (136-145); Total Protein, Blood 6.3 g/dL (6.4-8.2)
--- NOTE | 2019-11-24 17:52 | NUR ---
PT AOX4 AND COOPERATIVE OF CARE. PT CONTINUE TO BE TREATED FOR PAIN PER EMAR. PT HAS REQUESTED SOLID FOOD DIET AND DR KILGORE APPROVED THIS. PT STANDBY ASSIST TO RESTROOM AND CALLS APPROPRIATELY. RESTING IN BED ALL DAY. NO DISTRESS NOTED.WILL CONTINUE TO MONITOR.
--- NOTE | 2019-11-24 20:03 | NUR ---
ASSUMED CARE. AOX3, INDEPENDENT IN THE ROOM. STARTED VOMITING UP DINNER. THIS WAS THE FIRST REGULAR MEAL SHE HAD. EMESIS WAS AROUND 200CC. STATES SHE DOES NOT KNOW WHY SHE STARTED WHEN SHE WAS DOING SO WELL. ADMINISTERED ATIVAN, PHENERGAN, AND FENTANYL. PAIN IN ABDOMIN 7-8. NO DIRRHEA. 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 ENCOURAGED TO SIP WATER, AND CALL IF HAPPENS AGAIN. CALL LIGHT IN REACH.
--- NOTE | 2019-11-24 23:09 | NUR ---
PT HAS HAD SEVERAL EPISODES OF VOMITING 100CC AT A TIME. THIS IS SINCE HER DINNER WHICH WAS REGULAR. CALLED LEVON CUELLO WHO ORDERED SOME ATIVAN AND NPO STATUS.
--- NOTE | 2019-11-24 23:30 | NUR ---
ADMINISTERED ATIVAN FOR NAUSEA. WILL RECHECK IN AN HOUR.
[2019-11-25 05:04] LABS: BASOPHILS ABSOLUTE AUTO 0.05 K/mm3 (0.00-0.23); BASOPHILS PERCENT AUTO 1 % (0-2); EOSINOPHILS ABSOLUTE AUTO 0.04 K/mm3 (0.00-0.68); EOSINOPHILS PERCENT AUTO 0 % (0-6); Hematocrit 43.1 % (33.0-51.0); Hemoglobin 14.7 g/dL (11.5-16.0); IMMATURE GRAN ABSOLUTE AUTO 0.04 K/mm3 (0.00-0.10); IMMATURE GRAN PERCENT AUTO 0 % (0-1); LYMPHOCYTES ABSOLUTE AUTO 2.06 K/mm3 (0.84-5.20); LYMPHOCYTES PERCENT AUTO 20 % (21-46); MONOCYTES ABSOLUTE AUTO 0.64 K/mm3 (0.16-1.47); MONOCYTES PERCENT AUTO 6 % (4-13); Mean Corpuscular HGB 28.9 pg (26.0-34.0); Mean Corpuscular HGB Conc 34.1 g/dL (31.5-36.5); Mean Corpuscular Volume 85 fL (80-100); NEUTROPHILS ABSOLUTE AUTO 7.31 K/mm3 (1.96-9.15); NEUTROPHILS PERCENT AUTO 72 % (41-73); Platelet Count 209 K/mm3 (150-400); RDW Coefficient Variation 13.8 % (11.7-14.2); RDW Standard Deviation 42.7 fL (35.1-46.3); Red Blood Cell Count 5.09 M/mm3 (3.80-5.20); White Blood Cell Count 10.14 K/mm3 (4.00-11.30)
[2019-11-25 05:26] LABS: Alanine Aminotransfer (ALT/SGP 20 U/L (12-78); Albumin, Blood 4.1 g/dL (3.4-5.0); Albumin/Globulin Ratio 1.2 (0.8-1.8); Alk Phos 97 U/L (50-136); Anion Gap 9 mmol/L (6-16); Aspartate Aminotrans (AST/SGOT 26 U/L (12-37); Bilirubin, Total 0.8 mg/dL (0.1-1.0); Blood Urea Nitrogen 4 mg/dL (8-24); Bun/Creatinine Ratio 6.3 (12.0-20.0); CO2, Blood 25 mmol/L (21-32); Calcium, Blood 9.1 mg/dL (8.5-10.1); Chloride, Blood 103 mmol/L (98-108); Creatinine, Blood 0.63 mg/dL (0.40-1.00); Globulin, Blood 3.5 g/dL (2.2-4.0); Glomerular Filtration Rate >60 (60-); Glucose, Blood 124 mg/dL (70-99); Magnesium, Blood 1.5 mg/dL (1.6-2.4); Potassium, Blood 3.6 mmol/L (3.5-5.5); Sodium, Blood 137 mmol/L (136-145); Total Protein, Blood 7.6 g/dL (6.4-8.2)
--- NOTE | 2019-11-25 06:05 | NUR ---
SHIFT SUMMARY: AOX3, INDEPENDENT. EXACERBATION OF HER NAUSEA OCCURRED RIGHT AFTER DINNER. SHE HAS BEEN VOMITING OFF AND ON ALL NIGHT. CALLED LEVON JEWELRY DRILL OPERATOR GOT ORDER FOR 2 EXTRA DOSES OF ATIVAN. THIS HELPED FOR SHORT PERIOD. THEN IT RESTARTED. HER BLOOD PRESSURE CONTINUED TO BE HYPERTENSIVE DUE TO NAUSEA AND PAIN. MEDICATED FOR PAIN SEVERAL TIMES THROUGH OUT THE SHIFT. SPOKE TO DR. QUINTERO AND GOT ORDER FOR REGLAN AND VESOTEC. ADMINISTERED BOTH THIS AM. SO FAR NO MORE NAUSEA. MADE NPO. WILL RECHECK BP. CALL LIGHT REMAINED IN REACH.
--- NOTE | 2019-11-25 15:28 | NUR ---
SUMMARY PT IS A/O X4, IND IN ROOM. SHE STATE CONTINUING NAUSEA, SHE WAS ACTIVELY VOMITING THIS AM. SHE HAS BEEN UNABLE TO EAT, NO APPETITE D/T NAUSEA. DECREASE DIET ORDER TO FL. HAVE GIVEN PHENERGAN 25MG APPROX Q4 PRN. SHE STATE ABDOMINAL PAIN D/T WRETCHING, HAVE GIVEN FENTANYL 25MCG APPROX Q4 FOR RELIEF. PT HAS DECLINED ORAL MEDS INCLUDING BP MEDS, THIS AM BP 160/117, IV VASOTEC GIVEN, BP IMPROVED @ 147/110. PT STATE HX INTRACTABLE N/V, HOSPITAL MULT X'S R/T. NS CONTINUES @ 100 ML/HR.
--- NOTE | 2019-11-25 19:43 | NUR ---
ASSUMED CARE. AOX3, NAUSEA NO EMESIS SINCE THIS AM. MEDICATED WITH REGLAN. HAS NOT EATEN DINNER, TOLERATING MILD JELLO AND WATER. ABDOMINAL PAIN /10, HYPOACTIVE BT T/O. TENDER ABDOMIN. MILD HEADACHE. [id number] FLATUS, NO BM TODAY. IV FLUIDS INFUSING. ENCOURAGE HER TO TAKE FOOD SLOWLY TO ALLOW HER BODY TO TOLERATE. CALL LIGHT IN REACH.
[2019-11-26 05:02] LABS: BASOPHILS ABSOLUTE AUTO 0.04 K/mm3 (0.00-0.23); BASOPHILS PERCENT AUTO 0 % (0-2); EOSINOPHILS ABSOLUTE AUTO 0.05 K/mm3 (0.00-0.68); EOSINOPHILS PERCENT AUTO 1 % (0-6); Hematocrit 41.8 % (33.0-51.0); Hemoglobin 14.4 g/dL (11.5-16.0); IMMATURE GRAN ABSOLUTE AUTO 0.02 K/mm3 (0.00-0.10); IMMATURE GRAN PERCENT AUTO 0 % (0-1); LYMPHOCYTES ABSOLUTE AUTO 3.41 K/mm3 (0.84-5.20); LYMPHOCYTES PERCENT AUTO 36 % (21-46); MONOCYTES ABSOLUTE AUTO 0.75 K/mm3 (0.16-1.47); MONOCYTES PERCENT AUTO 8 % (4-13); Mean Corpuscular HGB 29.4 pg (26.0-34.0); Mean Corpuscular HGB Conc 34.4 g/dL (31.5-36.5); Mean Corpuscular Volume 85 fL (80-100); Mean Platelet Volume 11.5 fL (9.1-12.4); NEUTROPHILS ABSOLUTE AUTO 5.13 K/mm3 (1.96-9.15); NEUTROPHILS PERCENT AUTO 55 % (41-73); Platelet Count 201 K/mm3 (150-400); RDW Coefficient Variation 14.2 % (11.7-14.2); RDW Standard Deviation 43.6 fL (35.1-46.3)
[2019-11-26 05:28] LABS: Alanine Aminotransfer (ALT/SGP 22 U/L (12-78); Albumin, Blood 3.8 g/dL (3.4-5.0); Albumin/Globulin Ratio 1.2 (0.8-1.8); Alk Phos 91 U/L (50-136); Anion Gap 7 mmol/L (6-16); Aspartate Aminotrans (AST/SGOT 28 U/L (12-37); Bilirubin, Total 1.2 mg/dL (0.1-1.0); Blood Urea Nitrogen 3 mg/dL (8-24); Bun/Creatinine Ratio 4.2 (12.0-20.0); CO2, Blood 29 mmol/L (21-32); Calcium, Blood 8.7 mg/dL (8.5-10.1); Chloride, Blood 101 mmol/L (98-108); Creatinine, Blood 0.71 mg/dL (0.40-1.00); Globulin, Blood 3.3 g/dL (2.2-4.0); Glomerular Filtration Rate >60 (60-); Glucose, Blood 105 mg/dL (70-99); Sodium, Blood 137 mmol/L (136-145); Total Protein, Blood 7.1 g/dL (6.4-8.2)
--- NOTE | 2019-11-26 06:52 | NUR ---
SHIFT SUMMARY: CEASAR CONTINUES TO HAVE NAUSEA T/O THE SHIFT. ANTI-NAUSEA MEDS WERE GIVEN Q 4 HOURS, PAIN IS PRESISTANT IN THE ABDOMIN. FENTANYL GIVEN Q4. REPORTS SHE STILL NOT FEELING ANY BETTER. DID NOT SLEEP WELL. IV FLUIDS CONTINUE TO INFUSE. STILL VERY HYPERTENSIVE IN THE 170'S, EVEN GAVE VASOTEC THIS AM AND IT DID NOT IMPROVE HER BP. SHE WAS ABLE TO HOLD DOWN HER PO MEDS LAST NIGHT. NO OTHER ACUTE CHANGES TO NOTE. CALL LIGHT IN REACH.
--- NOTE | 2019-11-26 15:52 | NUR ---
SUMMARY PT STATE CONTINUING NAUSEA TODAY, SOMEWHAT IMPROVED FROM PREVIOUS DAY--NO EMESIS. CONTINUE TO GIVE IV PHENERGAN APPROX Q4 & REGLAN Q6. SHE STATE CONTINUING ABD PAIN, HAVE GIVEN FENTANYL 50MCG APPROX Q4. DR KILGORE CONSULT GI TODAY, DR QUINTEROS NOTIFIED, STATE WILL SEE PT TODAY. PT HAS TOLERATED SM AMTS FL DIET. IV NS CONTINUES @ 100 ML/HR. BP ELEVATED THIS AM, DR KILGORE ORDER CLONIDINE PATCH, GOOD RESULTS LAST BP 119/84.
--- NOTE | 2019-11-26 19:12 | NUR ---
HABILITATION TRAINING SPECIALIST REPORT PT HAD APPROX 100ML EMESIS, CONTINUING N/V, DECLINED DINNER TRAY. DR QUINTEROS IN FOR GI CONSULT.
--- NOTE | 2019-11-26 21:24 | NUR ---
ASSUMED CARE. REPORTS NO CHANGES TODAY. STATES SHE STILL HAS NAUSEA AND ABDOMINAL PAIN. TOLERATED CLEAR LIQUIDS TODAY BUT VOMITED PUDDING. STATES SHE IS USED TO THIS SHE HAS BEEN DEALING WITH IT FOR SEVERAL YEARS. SHE IMMEDIATLY ASKED FOR NAUSEA MEDS STATING HER NAUSEA IS 8/10. NAUSEA MEDS ONLY LAST FOR 30 MINUTES OR SO. INFORMED HER IT WILL BE A FEW MINUTES I NEEDS TO PULL EVERY ONES MEDS. NO OTHER CHANGES, WILL CONTINUE TO MONITOR.
--- NOTE | 2019-11-26 23:13 | NUR ---
CEASAR WAS JUST UP IN THE WAITING ROOM, WAS ABLE TO WALK OUT ON HER OWN. WAS SITTING OUT THERE FOR ABOUT 30 MINUTES OR SO. NOW SHE IS BACK IN HER ROOM.
--- NOTE | 2019-11-27 06:47 | NUR ---
SHIFT SUMMARY: CEASAR'S BEHAVIOR WAS CHANGED COMPARED TO THE LAST 2 NIGHT I HAVE HAD HER. SHE HAS BECAME VERY PRESISTENT WITH WATCHING THE CLOCK FOR HER PHENERGAN AND FENTANYL. SHE WAS IMPATIENT GETTING IT WELL, CALLING SEVERAL TIMES I WAS PULLING THE MEDICATIONS. EVERY TIME PROPRIETARY TRADER OR I WALKED INTO THE ROOM SHE ASKED FOR THE MEDICATIONS DISPITE KNOWING SHE JUST GOT THEM OR IT WAS TO EARLY. SHE WAS EVEN ASKING FOR THE ATIVAN KNOWING SHE ONLY GETS IT TID. SHE ALWAYS SAID HER PAIN WAS A 7/10 BUT NEVER APPEARED TO BE IN PAIN. SHE EVEN WENT FOR A WALK IN THE [place] AND DID WELL LIKE THERE WAS NOTHING WRONG. SHE SAT IN THE WAITING ROOM PLAYING ON HER PHONE FOR A WHILE. SHE DID HAVE A NEW LUMP ON HER MEDIAL SIDE OF HER LEFT FOOT, SLIGHTLY RAISED, TENDER TO TOUCH, AREA IS NORMAL TEMP. GAVE HER ICE TO PLACE ON IT AND MONITOR. SHE DID HAVE SMALL AMOUNTS OF EMESIS AND WANTED TO MAKE SURE WE DOCUMENTED THAT SHE WAS STILL THROWING UP. BP WAS 166/115 AT START, GAVE HER THE PM BP MEDICATION AND SHE WAS BACK TO NORMAL. TELE WAS SINUS. SHE REPORTS NAUSEA MEDS ONLY WORK FOR 30 MINUTES, DISCUSSED POSSIBILITY OF THE AMOUNT OF MEDS BEING GIVEN COULD BE CONTRIBUTING TO HER NAUSEA MENTIONING THAT MAYBE WE SHOULD DECREASE THEM. SHE SAID NO TO THIS. WILL REPORT TO DAY SHIFT IN REGARDS TO THE BEHAVIORAL CHANGES AND CONCERNS THAT SHE MIGHT BE GETTING ADAPTED TO HAVING ALL THESE MEDS. CALL LIGHT IN REACH.
[2019-11-27 08:11] LABS: BASOPHILS ABSOLUTE AUTO 0.03 K/mm3 (0.00-0.23); BASOPHILS PERCENT AUTO 0 % (0-2); EOSINOPHILS ABSOLUTE AUTO 0.05 K/mm3 (0.00-0.68); EOSINOPHILS PERCENT AUTO 1 % (0-6); Hematocrit 35.6 % (33.0-51.0); Hemoglobin 12.3 g/dL (11.5-16.0); IMMATURE GRAN ABSOLUTE AUTO 0.02 K/mm3 (0.00-0.10); IMMATURE GRAN PERCENT AUTO 0 % (0-1); LYMPHOCYTES ABSOLUTE AUTO 2.13 K/mm3 (0.84-5.20); LYMPHOCYTES PERCENT AUTO 23 % (21-46); MONOCYTES PERCENT AUTO 10 % (4-13); Mean Corpuscular HGB 29.2 pg (26.0-34.0); Mean Corpuscular HGB Conc 34.6 g/dL (31.5-36.5); Mean Corpuscular Volume 85 fL (80-100); Mean Platelet Volume 11.5 fL (9.1-12.4); NEUTROPHILS ABSOLUTE AUTO 6.26 K/mm3 (1.96-9.15); NEUTROPHILS PERCENT AUTO 67 % (41-73); Platelet Count 175 K/mm3 (150-400); RDW Coefficient Variation 14.2 % (11.7-14.2); RDW Standard Deviation 43.6 fL (35.1-46.3); Red Blood Cell Count 4.21 M/mm3 (3.80-5.20); White Blood Cell Count 9.39 K/mm3 (4.00-11.30)
[2019-11-27 08:29] LABS: Alanine Aminotransfer (ALT/SGP 29 U/L (12-78); Albumin, Blood 3.8 g/dL (3.4-5.0); Albumin/Globulin Ratio 1.3 (0.8-1.8); Alk Phos 81 U/L (50-136); Anion Gap 7 mmol/L (6-16); Aspartate Aminotrans (AST/SGOT 40 U/L (12-37); Blood Urea Nitrogen 3 mg/dL (8-24); Bun/Creatinine Ratio 4.6 (12.0-20.0); CO2, Blood 27 mmol/L (21-32); Calcium, Blood 8.4 mg/dL (8.5-10.1); Chloride, Blood 105 mmol/L (98-108); Creatinine, Blood 0.66 mg/dL (0.40-1.00); Globulin, Blood 2.9 g/dL (2.2-4.0); Glomerular Filtration Rate >60 (60-); Glucose, Blood 103 mg/dL (70-99); Potassium, Blood 3.1 mmol/L (3.5-5.5); Sodium, Blood 139 mmol/L (136-145); Total Protein, Blood 6.7 g/dL (6.4-8.2)
--- NOTE | 2019-11-27 18:04 | NUR ---
SHIFT SUMMARY. A&OX4, INDEPENDENT IN ROOM. PT WITH ALMOST CONSTANT ABD PAIN AND NAUSEA TODAY REQUIRING SEVERAL PRN DOSES FOR SYMPTOM MANAGEMENT, SEE EMAR. SYMPTOMS MANAGED WELL WITH CURRENT ORDERS. PT REPORTS THAT HER SYMPTOMS SEVERITY HAVE ACTUALLY DECREASED TODAY COMPARED TO PREVIOUS DAYS. PT REPORTS THAT HER APPETITE HAS ALSO INCREASED. DR. QUINTEROS ADVANCED DIET TO REGUALAR LOW FIBER DIET. PT TOLERATED NEW MEDICATION CARNITOR WITHOUT ISSUE. K RIDER INFUSION, CONTINUES WITH CONTINUOUS MAINTENCE FLUIDS. NO OTHER CHANGES OR CONCERS.
--- NOTE | 2019-11-28 04:25 | NUR ---
LARRY CAR OPERATOR SUMMARY PT CONTINUES TO HAVE SEVER STOMACH PAIN BUT DID NOT HAVE ANY EMESIS THIS SHIFT. PT COMPLAINED OF LEFT FOOT PAIN AND WAS GIVEN AN ICE PACK WHICH BROUGHT RELIEF. PT HAS REMAINED ON TELE HAVE PACED RYTHYM AT 65 BPM. PT DENIES ANY C/P OR SOB. PT IS CURRENTLY RESTIN COMFORTABLY IN BED W CALL LIGHT WITHIN REACH.
[2019-11-28 05:42] LABS: BASOPHILS ABSOLUTE AUTO 0.02 K/mm3 (0.00-0.23); BASOPHILS PERCENT AUTO 0 % (0-2); EOSINOPHILS PERCENT AUTO 2 % (0-6); Hematocrit 30.4 % (33.0-51.0); Hemoglobin 10.2 g/dL (11.5-16.0); IMMATURE GRAN ABSOLUTE AUTO 0.01 K/mm3 (0.00-0.10); IMMATURE GRAN PERCENT AUTO 0 % (0-1); LYMPHOCYTES ABSOLUTE AUTO 2.16 K/mm3 (0.84-5.20); LYMPHOCYTES PERCENT AUTO 44 % (21-46); MONOCYTES ABSOLUTE AUTO 0.49 K/mm3 (0.16-1.47); MONOCYTES PERCENT AUTO 10 % (4-13); Mean Corpuscular HGB 29.3 pg (26.0-34.0); Mean Corpuscular HGB Conc 33.6 g/dL (31.5-36.5); Mean Corpuscular Volume 87 fL (80-100); Mean Platelet Volume 11.4 fL (9.1-12.4); NEUTROPHILS ABSOLUTE AUTO 2.11 K/mm3 (1.96-9.15); NEUTROPHILS PERCENT AUTO 43 % (41-73); Platelet Count 115 K/mm3 (150-400); RDW Coefficient Variation 14.6 % (11.7-14.2); RDW Standard Deviation 45.7 fL (35.1-46.3); Red Blood Cell Count 3.48 M/mm3 (3.80-5.20); White Blood Cell Count 4.89 K/mm3 (4.00-11.30)
[2019-11-28 06:01] LABS: Alanine Aminotransfer (ALT/SGP 21 U/L (12-78); Albumin/Globulin Ratio 1.2 (0.8-1.8); Alk Phos 69 U/L (50-136); Anion Gap 6 mmol/L (6-16); Aspartate Aminotrans (AST/SGOT 25 U/L (12-37); Bilirubin, Total 0.4 mg/dL (0.1-1.0); Blood Urea Nitrogen 4 mg/dL (8-24); CO2, Blood 25 mmol/L (21-32); Chloride, Blood 112 mmol/L (98-108); Creatinine, Blood 0.67 mg/dL (0.40-1.00); Globulin, Blood 2.5 g/dL (2.2-4.0); Glomerular Filtration Rate >60 (60-); Glucose, Blood 109 mg/dL (70-99); Magnesium, Blood 1.6 mg/dL (1.6-2.4); Potassium, Blood 3.2 mmol/L (3.5-5.5); Sodium, Blood 143 mmol/L (136-145); Total Protein, Blood 5.5 g/dL (6.4-8.2)
--- NOTE | 2019-11-28 18:36 | NUR ---
SHIFT SUMMARY. PT CONTINUES TO REQUIRE SEVERAL DOSES OF NAUSEA AND PAIN MEDICATION THROUGHOUT SHIFT. PT HAS TOLERATED SMALL MEAL INTAKE THROUGHOUT THE SHIFT WITHOUT VOMMITING. NO NEW CHANGES OR CONCERNS.
--- NOTE | 2019-11-29 04:25 | NUR ---
FOOD AND BEVERAGE OUTLETS MANAGER SUMMARY PT APPEARS MUCH BETTER THIS SHIFT DESPITE SEVERAL REQUESTS FOR PAIN/NAUSEA MEDICATION. PT REQUESTED SNACKS AND WATER TOLERATING THEM WELL. PT APPEARED MODERATELY CONFUSED DURING THE NIGHT SHE USED THE BSC TO URINATE BUT DID NOT LIFT THE LID BEFORE HAND. URINE WAS CLEANED AND PT WAS ASSISTED BACK IN BED. PT RESTED COMFORTABLY FOR MOST OF THE SECOND HALF OF THE NIGHT.
[2019-11-29 06:34] LABS: Anion Gap 8 mmol/L (6-16); Blood Urea Nitrogen 3 mg/dL (8-24); Bun/Creatinine Ratio 4.4 (12.0-20.0); CO2, Blood 23 mmol/L (21-32); Calcium, Blood 8.5 mg/dL (8.5-10.1); Chloride, Blood 110 mmol/L (98-108); Creatinine, Blood 0.68 mg/dL (0.40-1.00); Glomerular Filtration Rate >60 (60-); Glucose, Blood 114 mg/dL (70-99); Magnesium, Blood 1.6 mg/dL (1.6-2.4); Potassium, Blood 3.1 mmol/L (3.5-5.5); Sodium, Blood 141 mmol/L (136-145)
--- NOTE | 2019-11-29 19:38 | NUR ---
SHIFT SUMMARY. PT CONTINUES WITH CONSTANT C/O PAIN AND NAUSEA, SYMPTOMS MANAGED WITH CURRENT ORDERS. NO VOMMITING FOR TWO DAYS NOW. K AND MAG RIDERS INFUSED. CONTINUES WITH MAINTENCE FLUIDS. PT REPORTS EXCITMENT OF POTENTIAL D/C TOMORROW. NO NEW CHANGES OR CONCERNS.
[2019-11-30 06:13] LABS: Anion Gap 6 mmol/L (6-16); Blood Urea Nitrogen 6 mg/dL (8-24); Bun/Creatinine Ratio 8.4 (12.0-20.0); CO2, Blood 25 mmol/L (21-32); Calcium, Blood 8.9 mg/dL (8.5-10.1); Chloride, Blood 110 mmol/L (98-108); Creatinine, Blood 0.72 mg/dL (0.40-1.00); Glomerular Filtration Rate >60 (60-); Glucose, Blood 108 mg/dL (70-99); Magnesium, Blood 1.7 mg/dL (1.6-2.4); Potassium, Blood 3.9 mmol/L (3.5-5.5); Sodium, Blood 141 mmol/L (136-145)
--- NOTE | 2019-11-30 07:38 | NUR ---
SHIFT SUMMARY AOX4. VSS. TELE PACED c HR 70'S. PT REPORTS 09/16 ABD PAIN, MEDICATED 3X c 50MCG FENTANYL PER ORDERS, PT STATES RELIEF. REPORTS NAUSEA, MEDICATED 1X c PHENERGAN- NO EMESIS NOTED. ABD TENDER TO PALPATION. ACTIVE BT. TOLERATED DIET, HAD MULTIPLE SNACKS T/O NIGHT. CALL LIGHT IN REACH.
[2019-11-30] MEDS ORDERED: LOSA50 PO (14:02)
[2019-11-30] MEDS ORDERED: Catapres-Tts 11 EACH TOP (14:02)
[2019-11-30] MEDS ORDERED: MIRT30ST PO (14:03)
[2019-11-30] MEDS ORDERED: CARNITINE PO (14:03)
--- NOTE | 2019-11-30 16:20 | NUR ---
DISCHARGE NOTE PT DISCHARGE PACKET REVIEWED WITH PT. AMANDA DC'D PRIOR TO PT DC. PT VERBALIZED AN UNDERSTANDING OF DC INSTRUCTIONS AND MEDICATIONS. PT HAS LEFT THE UNIT WITH ALL HER BELONGINGS.
== END 2019-11-30 16:16 | disposition home or self-care (01) | DRG 393 ==
LOC: ER 08:18 → MEDS 12:02
PROVIDERS: Internal Medicine; Internal Medicine Gastroenterology; Physician Assistant; ADMIT Internal Medicine
DX: R11.15 Cyclical vomiting syndrome unrelated to migraine (principal); Q22.5 Ebstein's anomaly; E87.1 Hypo-osmolality and hyponatremia; F41.9 Anxiety disorder, unspecified; Z20.828 Contact with and (suspected) exposure to other viral communicable diseases; I45.81 Long QT syndrome; I10 Essential (primary) hypertension; E87.6 Hypokalemia; K70.30 Alcoholic cirrhosis of liver without ascites; E83.42 Hypomagnesemia; Z95.810 Presence of automatic (implantable) cardiac defibrillator; G47.00 Insomnia, unspecified; B18.2 Chronic viral hepatitis C; Z87.891 Personal history of nicotine dependence
CPT/HCPCS: 36415; 74177; 80048; 80053; 82010; 83605; 83690; 83735; 84145; 84443; 85025; 85651; 86140; 87902; 93005; 93010; 93306; 94762; 96361; 96374; 96375; 96376; 99284-25; A9270; A9270-GY; C9113; J0360; J0780; J1200; J1650; J1885; J2060; J2270; J2550; J2765; J3010; J3475; J3480; J7030; J7050; Q9967

== ENCOUNTER → 2021-01-29 | Outpatient (CLI) | payer OTHER ==
[~2021-01-29] MED LIST changes: +CARNITINE PO; +Catapres-Tts 11 EACH TOP; +LOSA50 PO; +MIRT30ST PO
[2021-01-29 19:36] LABS: BASOPHILS ABSOLUTE AUTO 0.05 K/mm3 (0.00-0.23); BASOPHILS PERCENT AUTO 1 % (0-2); EOSINOPHILS ABSOLUTE AUTO 0.29 K/mm3 (0.00-0.68); EOSINOPHILS PERCENT AUTO 6 % (0-6); Hemoglobin 10.7 g/dL (11.5-16.0); IMMATURE GRAN PERCENT AUTO 0 % (0-1); LYMPHOCYTES ABSOLUTE AUTO 1.75 K/mm3 (0.84-5.20); LYMPHOCYTES PERCENT AUTO 37 % (21-46); MONOCYTES ABSOLUTE AUTO 0.41 K/mm3 (0.16-1.47); MONOCYTES PERCENT AUTO 9 % (4-13); Mean Corpuscular HGB 30.4 pg (26.0-34.0); Mean Corpuscular HGB Conc 33.4 g/dL (31.5-36.5); Mean Corpuscular Volume 91 fL (80-100); Mean Platelet Volume 10.4 fL (9.1-12.4); NEUTROPHILS ABSOLUTE AUTO 2.24 K/mm3 (1.96-9.15); NEUTROPHILS PERCENT AUTO 47 % (41-73); Platelet Count 145 K/mm3 (150-400); RDW Coefficient Variation 13.4 % (11.7-14.2); RDW Standard Deviation 44.5 fL (35.1-46.3); Red Blood Cell Count 3.52 M/mm3 (3.80-5.20); White Blood Cell Count 4.74 K/mm3 (4.00-11.30)
[2021-01-29 19:55] LABS: Alanine Aminotransfer (ALT/SGP 20 U/L (12-78); Albumin, Blood 3.3 g/dL (3.4-5.0); Albumin/Globulin Ratio 1.1 (0.8-1.8); Alk Phos 79 U/L (50-136); Anion Gap 6 mmol/L (6-16); Aspartate Aminotrans (AST/SGOT 18 U/L (12-37); Bilirubin, Total 0.3 mg/dL (0.1-1.0); Blood Urea Nitrogen 6 mg/dL (8-24); Bun/Creatinine Ratio 7.2 (12.0-20.0); CO2, Blood 26 mmol/L (21-32); Calcium, Blood 8.5 mg/dL (8.5-10.1); Chloride, Blood 107 mmol/L (98-108); Creatinine, Blood 0.83 mg/dL (0.40-1.00); Globulin, Blood 2.9 g/dL (2.2-4.0); Glomerular Filtration Rate >60 (60-); Glucose, Blood 87 mg/dL (70-99); Potassium, Blood 3.9 mmol/L (3.5-5.5); Sodium, Blood 139 mmol/L (136-145); Total Protein, Blood 6.2 g/dL (6.4-8.2)
== END | disposition home or self-care (01) ==
LOC: LAB 18:54 → LAB SHORT 18:54
PROVIDERS: Nurse Practitioner
DX: R55 Syncope and collapse (principal)
CPT/HCPCS: 80053; 84443; 85025

== ENCOUNTER 2023-01-09 08:32 | Day surgery (SDC) | payer OTHER ==
[~2023-01-09] VITALS: Ht 160 cm; Wt 85.7 kg
[2023-01-09] MEDS ORDERED: IBUP800 (08:54)
[2023-01-09] MEDS ORDERED: TRAZ50 (08:55)
[2023-01-09 10:40] VITALS: BP 102/54
== END 2023-01-09 10:40 | disposition home or self-care (01) ==
LOC: ORSCSDS 08:32
PROVIDERS: Specialist
PROC: 0DJ08ZZ Inspection of Upper Intestinal Tract, Via Natural or Artificial Opening Endoscopic (ICD-10-PCS; principal; 2023-01-09 10:00)
DX: K74.60 Unspecified cirrhosis of liver (principal); K21.9 Gastro-esophageal reflux disease without esophagitis; K73.9 Chronic hepatitis, unspecified; F41.9 Anxiety disorder, unspecified; Z79.899 Other long term (current) drug therapy
CPT/HCPCS: J2704

== ENCOUNTER 2024-03-19 12:21 | Day surgery (SDC) | payer OTHER ==
[~2024-03-19] VITALS: Ht 160 cm; Wt 83.7 kg
[~2024-03-19 12:21] MED LIST changes: +IBUP800; +TRAZ50
[2024-03-19] MEDS ORDERED: BUSP5 (13:14)
[2024-03-19] MEDS ORDERED: LIDO700A20 (13:14)
[2024-03-19] MEDS ORDERED: MULTIPLE VITAM1 EACH (13:14)
[2024-03-19] MEDS ORDERED: FERSU300 (13:14)
[2024-03-19] MEDS ORDERED: FAMO20 (13:14)
[2024-03-19] MEDS ORDERED: Percocet 5-3251 EACH (13:15)
[2024-03-19] MEDS ORDERED: POTA10T (13:15)
[2024-03-19] MEDS ORDERED: Lactated Ringer's 1,000 ML IV ONE ×3 (13:34→13:43)
[2024-03-19] MEDS ORDERED: propofoL 50 ML IV ONE (13:43)
[2024-03-19 14:50] VITALS: BP 96/71
== END 2024-03-19 14:49 | disposition home or self-care (01) ==
LOC: ORSCSDS 12:21
PROVIDERS: Internal Medicine Gastroenterology
PROC: 0DJ08ZZ Inspection of Upper Intestinal Tract, Via Natural or Artificial Opening Endoscopic (ICD-10-PCS; principal; 2024-03-19 14:00)
DX: K74.60 Unspecified cirrhosis of liver (principal); Z86.19 Personal history of other infectious and parasitic diseases; K21.9 Gastro-esophageal reflux disease without esophagitis; E87.1 Hypo-osmolality and hyponatremia; E87.6 Hypokalemia; Z79.899 Other long term (current) drug therapy
CPT/HCPCS: J2704; J7120

== ENCOUNTER 2024-07-09 08:13 | Day surgery (SDC) | payer OTHER ==
[~2024-07-09] VITALS: Ht 160 cm; Wt 86.0 kg
[~2024-07-09 08:13] MED LIST changes: +BUSP5; +FAMO20; +FERSU300; +LIDO700A20; +Lactated Ringer's 1,000 ML IV ONE; +MULTIPLE VITAM1 EACH; +POTA10T; +Percocet 5-3251 EACH
[2024-07-09] MEDS ORDERED: BUPRENORPHIN-N1 EAC1 SL (09:13)
[2024-07-09] MEDS ORDERED: HYDCHL50 PO (09:20)
[2024-07-09] MEDS ORDERED: Lactated Ringer's 1,000 ML IV ONE (10:20)
[2024-07-09] MEDS ORDERED: propofoL 50 ML IV ONE (10:25)
[2024-07-09 11:44] VITALS: BP 108/63
== END 2024-07-09 11:35 | disposition home or self-care (01) ==
LOC: ORSCSDS 08:13
PROVIDERS: Internal Medicine Gastroenterology
PROC: 0DJD8ZZ Inspection of Lower Intestinal Tract, Via Natural or Artificial Opening Endoscopic (ICD-10-PCS; principal; 2024-07-09 10:00)
DX: Z12.11 Encounter for screening for malignant neoplasm of colon (principal); Z86.0100 Personal history of colon polyps, unspecified; Z80.0 Family history of malignant neoplasm of digestive organs; K74.60 Unspecified cirrhosis of liver; Z86.19 Personal history of other infectious and parasitic diseases; E87.1 Hypo-osmolality and hyponatremia; E87.6 Hypokalemia; R06.00 Dyspnea, unspecified; Z87.891 Personal history of nicotine dependence; Z79.899 Other long term (current) drug therapy
CPT/HCPCS: J2704; J7120

== ENCOUNTER 2024-11-01 15:59 | Emergency (ER) | payer OTHER ==
[~2024-11-01] VITALS: Ht 160 cm; Wt 77.1 kg
[~2024-11-01 15:59] MED LIST changes: +BUPRENORPHIN-N1 EAC1 SL; +DAPAGLIFLOZIN5 MG PO; +HYDCHL50 PO; -IBUP800; +IRON-VITAMIN C1 EAC1 PO; -Lactated Ringer's 1,000 ML IV ONE; +METO25 PO; +NICOTINE LOZENGE4 MG BC; -POTA10T; +POTA10T PO; +SEMAGLUTID0.25 MG/0. SQ; +TELM40 PO; +TELM80 PO; -TRAZ50; +TRAZ50 PO
[2024-11-01] MEDS ORDERED: NS 1,000 ML IV SCH (17:30)
[2024-11-01] MEDS ORDERED: HYDROmorphone HCl/Pf 1MG SYR IV PRN ×2 (17:30→19:15)
[2024-11-01] MEDS ORDERED: Ondansetron HCl 2 MG / ML 2ML Vial IV ONE (17:30)
[2024-11-01 19:20] LABS: Alanine Aminotransfer (ALT/SGP 12.0 U/L (12-78); Albumin, Blood 2.9 g/dL (3.4-5.0); Albumin/Globulin Ratio 1.4 (0.8-1.8); Anion Gap 9.0 mmol/L (3-11); Aspartate Aminotrans (AST/SGOT 46.0 U/L (12-37); Bilirubin, Total 0.3 mg/dL (0.1-1.0); Blood Urea Nitrogen 7.0 mg/dL (8-24); CO2, Blood 18.0 mmol/L (21-32); Calcium, Blood 6.3 mg/dL (8.5-10.1); Chloride, Blood 113.0 mmol/L (98-108); Creatinine, Blood 0.76 mg/dL (0.40-1.00); Globulin, Blood 2.1 g/dL (2.2-4.0); Glucose, Blood 74.0 mg/dL (70-99); Potassium, Blood 3.4 mmol/L (3.5-5.5); Sodium, Blood 137.0 mmol/L (136-145); Total Protein, Blood 5.0 g/dL (6.4-8.2)
[2024-11-01] MEDS ORDERED: Propofol 10mg/ml 20 ml Vial (Procedural) IV SCH (19:35)
[2024-11-01 19:45] LABS: BASOPHILS ABSOLUTE AUTO 0.04 K/mm3 (0.00-0.23); BASOPHILS PERCENT AUTO 1 % (0-2); EOSINOPHILS ABSOLUTE AUTO 0.11 K/mm3 (0.00-0.68); EOSINOPHILS PERCENT AUTO 2 % (0-6); Hematocrit 32.4 % (33.0-51.0); Hemoglobin 11.3 g/dL (11.5-16.0); IMMATURE GRAN ABSOLUTE AUTO 0.01 K/mm3 (0.00-0.10); IMMATURE GRAN PERCENT AUTO 0 % (0-1); LYMPHOCYTES ABSOLUTE AUTO 1.86 K/mm3 (0.84-5.20); LYMPHOCYTES PERCENT AUTO 27 % (21-46); MONOCYTES ABSOLUTE AUTO 0.53 K/mm3 (0.16-1.47); MONOCYTES PERCENT AUTO 8 % (4-13); Mean Corpuscular HGB Conc 34.9 g/dL (31.5-36.5); Mean Corpuscular Volume 85 fL (80-100); NEUTROPHILS ABSOLUTE AUTO 4.45 K/mm3 (1.96-9.15); NEUTROPHILS PERCENT AUTO 64 % (41-73); NRBC ABSOLUTE 0.00 K/mm3 (0.00-0.02); NRBC Auto 0.0 /100 WBC (0.0-0.2); Platelet Count 124 K/mm3 (150-400); RDW Coefficient Variation 11.5 % (11.7-14.2); RDW Standard Deviation 35.6 fL (35.1-46.3)
[2024-11-01] MEDS ORDERED: FentaNYL Citrate 50 MCG/ML 2 ML Injection ONE (20:28)
[2024-11-01] MEDS ORDERED: FentaNYL Citrate 50 MCG/ML 2 ML Injection IV ONE (20:40)
[2024-11-02] MEDS ORDERED: Propofol 10mg/ml 20 ml Vial (Procedural) IV SCH (00:15)
[2024-11-02] MEDS ORDERED: POLY500 PO (02:31)
[2024-11-02] MEDS ORDERED: OXAYDO5 M1 PO (02:31)
[2024-11-02] MEDS ORDERED: ONDA4ODT MM (02:31)
[2024-11-02] MEDS ORDERED: SENNA LAXATIVE8.6 MG PO (02:31)
[2024-11-02] MEDS ORDERED: RX Prepack 6 Tabs Oxycodone 5mg UD ONE (02:55)
[2024-11-02 03:00] VITALS: BP 86/55
== END 2024-11-02 05:05 | disposition home or self-care (01) ==
LOC: ER 15:59
PROVIDERS: Emergency Medicine
DX: S82.851A Displaced trimalleolar fracture of right lower leg, initial encounter for closed fracture (principal); R55 Syncope and collapse; D64.9 Anemia, unspecified; D69.6 Thrombocytopenia, unspecified; I11.0 Hypertensive heart disease with heart failure; I50.20 Unspecified systolic (congestive) heart failure; Z87.891 Personal history of nicotine dependence; Z95.810 Presence of automatic (implantable) cardiac defibrillator; Z95.2 Presence of prosthetic heart valve; Z88.1 Allergy status to other antibiotic agents; Z88.6 Allergy status to analgesic agent; Z88.5 Allergy status to narcotic agent; Z88.8 Allergy status to other drugs, medicaments and biological substances; Z79.899 Other long term (current) drug therapy; W19.XXXA Unspecified fall, initial encounter
CPT/HCPCS: 27818; 73502; 73600; 73610; 80053; 82550; 83605; 84484; 85025; 93005; 93010; 96374-59; 96375-59; 96376-59; 99285-25; A6590; A9270; J1171; J2405; J2704; J3010; J7030

== ENCOUNTER 2024-11-12 10:46 | Day surgery (SDC) | payer OTHER ==
[~2024-11-12] VITALS: Ht 160 cm; Wt 81.1 kg
[~2024-11-12 10:46] MED LIST changes: +Bupivacaine 0.5% W/EPI 1:200000 SDV 30 ML Vial ONE; +OXAYDO5 M1 PO; +POLY500 PO; +SENNA LAXATIVE8.6 MG PO
[2024-11-12] MEDS ORDERED: CeFAZolin Sodium 2,000 MG VIAL ONE (11:02)
[2024-11-12] MEDS ORDERED: CARVEDILOL6.25 MG PO (11:32)
[2024-11-12] MEDS ORDERED: Potassium Chlo20 ME1 PO (11:33)
[2024-11-12] MEDS ORDERED: LOSA50 PO (11:34)
[2024-11-12] MEDS ORDERED: OZEMPIC0.25 MG/02 SC (11:35)
[2024-11-12] MEDS ORDERED: Lidocaine 1%-Epineph 1:100000 20 ML MDV ONE (12:44)
[2024-11-12] MEDS ORDERED: Rocuronium Bromide 10 MG/ML 5ML Injection IV ONE ×2 (13:06→14:29)
[2024-11-12] MEDS ORDERED: Ondansetron HCl 2 MG / ML 2ML Vial ONE (13:06)
[2024-11-12] MEDS ORDERED: Ketorolac Tromethamine 30mg Vial ONE (13:06)
[2024-11-12] MEDS ORDERED: FentaNYL Citrate 50 MCG/ML 2 ML Injection ONE (13:08)
--- NOTE | 2024-11-12 13:10 | NUR ---
11/12/24 [address] [place] [address] 1245: PATIENT QUITE ANXIOUS. ANOTHER RN DISCUSSED WITH DR HERNANDES THAT PT MIGHT BENEFIT FROM ANTI-ANXIETY MED BEFORE BLOCK. DR HERNANDES WILL TALK WITH PATIENT. DR HERNANDES DISCUSSING WITH PATIENT THAT SHE WOULD LIKE TO NOT USE SEDATING MEDICINE FOR THE BLOCK PROCEDURE BECAUSE IT LIMITS HOW MUCH PAIN MEDICINE SHE CAN GIVE HER. PT STATES "OKAY" 1250: TIMEOUT FOR BLOCK PROCEDURE 1254: START OF BLOCK BY DR HERNANDES 1256: NEEDLE IN FOR BLOCK PROCEDURE 1300: BLOCK COMPLETED BY DR HERNANDES. PT TOLERATED WELL. ON ROOM AIR FOR PROCEDURE. 1255: DR CASTILLO NOTIFIED THAT PATIENT HAD 800 MG IBUPROFEN YESTERDAY AND TAKES IT 1-2 TIMES/DAY,PER DR CASTILLO OK TO PROCEED.
[2024-11-12] MEDS ORDERED: Midazolam HCl 1MG / ML 2ML Vial ONE (14:02)
[2024-11-12] MEDS ORDERED: HYDROmorphone HCl/Pf 1MG SYR ONE ×2 (14:45→15:24)
[2024-11-12] MEDS ORDERED: Sugammadex Sodium 200 MG/2ML SDV (100 MG/ML) ONE (14:48)
[2024-11-12] MEDS ORDERED: OxyCODONE 5 mg/Acetamin 325 mg TABLET ONE (16:19)
[2024-11-12 16:26] VITALS: BP 121/76
--- NOTE | 2024-11-12 16:57 | NUR ---
11/12/24 1657 [address] DISCONTINUED IV IN RIGHT FOREARM AND DISCONTINUED IV IN LEFT WRIST. CATHETERS TIPS INTACT. PT REPORTS A MANAGEABLE LEVEL OF PAIN AND IS AGREEABLE TO D/C HOME WITH HER FRIEND SYD.
[2024-11-12] MEDS ORDERED: Dexamethasone Sod Phos 10 MG/ML 1ML VIAL XX ONE (19:24)
== END 2024-11-12 16:54 | disposition home or self-care (01) ==
LOC: ORSCSDS 10:46
PROVIDERS: Podiatrist Foot & Ankle Surgery
PROC: 0QSG04Z Reposition Right Tibia with Internal Fixation Device, Open Approach (ICD-10-PCS; principal; 2024-11-12 12:15)
PROC: 0QSJ04Z Reposition Right Fibula with Internal Fixation Device, Open Approach (ICD-10-PCS; principal; 2024-11-12 12:15)
DX: S82.841A Displaced bimalleolar fracture of right lower leg, initial encounter for closed fracture (principal); S93.431A Sprain of tibiofibular ligament of right ankle, initial encounter; W18.30XA Fall on same level, unspecified, initial encounter; I48.91 Unspecified atrial fibrillation; F32.A Depression, unspecified; I10 Essential (primary) hypertension; K21.9 Gastro-esophageal reflux disease without esophagitis; F41.9 Anxiety disorder, unspecified; Z79.899 Other long term (current) drug therapy; Z79.85 Long-term (current) use of injectable non-insulin antidiabetic drugs; K74.60 Unspecified cirrhosis of liver
CPT/HCPCS: A6253; A9270; C1713; C1769; C1776; J0690; J1100; J1171; J1885; J2250; J2405; J2704; J3010